=== PATIENT | male | born 1930 | race Caucasian/White ===

== ENCOUNTER 2018-02-09 00:03 | Inpatient (IN) | payer MEDICARE ==
[2018-02-09 01:33] VITALS: BP 136/77
[2018-02-09] MEDS ORDERED: Magnesium Hydroxide (MOM) 30 mL UDC PO PRN (01:35)
[2018-02-09] MEDS ORDERED: Maalox 30 mL Cup PO PRN (01:35)
[2018-02-09 08:11] LABS: CHOLESTEROL 128 mg/dL (<200); HDL -HIGH DENSITY LIPOPROTEIN 58 mg/dL (23-92); TRIGLYCERIDES 51 mg/dL (<150)
--- NOTE | 2018-02-09 12:09 | History & Physical ---
ADMIT DATE: 02/09/2018 INTERNAL MEDICINE CONSULTATION HISTORY OF PRESENT ILLNESS: This is an 87-year-old gentleman, who was brought in from [facility] secondary to grave disability and danger to self. The patient was apparently living in dilapidated trailer with no working toilet and he was also found underneath a neighbor's vehicle. He denies any of the above-mentioned data except to say that his toilet was temporarily out of order. 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 He has a history of essential hypertension, but denies any other medical history. Overall, he is a poor historian. PAST MEDICAL HISTORY: As noted above. PAST SURGERIES: Denies. FAMILY HISTORY: Noncontributory to this admission. SOCIAL HISTORY: Ex-smoker and ex-drinker, he quit about 6 years ago, cannot quantify how much he smoked or drank at that time, currently lives at home with his . ALLERGIES: NKDA. OUTPATIENT MEDICATIONS: Seroquel 25 at bedtime, Tylenol 650 q. 6 hours p.r.n. for pain, amlodipine 5 q. day, Lovenox 30 mg subQ q. daily, lorazepam 5 b.i.d. and metoprolol 25 b.i.d. REVIEW OF SYSTEMS: Good review of systems was unable to be done given the patient's being a poor historian, but he denies any recent ailments, any fever or chills. CARDIAC: No chest pain, palpitations. PULMONARY: No cough or phlegm production. GASTROINTESTINAL: No bowel habit changes including no abdominal pain, nausea, vomiting, diarrhea. GENITOURINARY: No bladder habit changes including no dysuria or hematuria. NEUROLOGIC: He denies any syncopal episodes. Reports being legally blind. MUSCULOSKELETAL: He states that his legs at times give out and sometimes that is the reason for his falls, although he blames it mostly on him being blind. PHYSICAL EXAMINATION: VITAL SIGNS: Temperature 97.9, pulse 76, respirations 18, BP 126/72, satting 98% on room air. GENERAL: Well-developed, thin, elderly male, somewhat hard of hearing, but not in acute distress. HEAD AND NECK: Normocephalic, atraumatic. Pupils are reactive to light. Extraocular movements are intact. Oropharynx is moist and clear. CARDIAC: Regular rate and rhythm with distant sounds. LUNGS: Diminished at the bases, but clear to auscultation. ABDOMEN: Soft, supple, nontender, nondistended, normoactive bowel sounds. EXTREMITIES: Lower extremity, there is no edema. NEUROLOGIC: Grossly intact, nonfocal. Cranial nerves 2-12 are within normal limits. LABORATORY DATA: His labs from [facility] were reviewed. ASSESSMENT: 1. Grave disability. 2. Danger to self. 3. Essential hypertension. 4. Legally blind. 5. Ataxia with frequent falling. PLAN: The patient has been admitted to [facility] further management and care. The patient will be kept on his current medications as scheduled including Lovenox given his inability of frequent ambulation. Again, he will be kept on his antihypertensives as scheduled. PT evaluation has been ordered. JOB# [id number] ERICA
--- NOTE | 2018-02-09 15:13 | Psychiatric Evaluation ---
DATE OF SERVICE: 02/09/2018 JUSTIFICATION FOR HOSPITALIZATION: The patient was living in a dilapidated trailer, bowel movements in a bucket, sleeping underneath a neighbor's vehicle, concerns for grave disability. CHIEF COMPLAINT: "I don't know why I am here. They pulled me out of my trailer." HISTORY OF PRESENT ILLNESS: An 87-year-old male who was apparently living in a trailer. The toilet was not working. He was defecating in a bucket. He was sleeping underneath a neighbor's vehicle, acting strange. He was confused. He knows the year. He knows the month. He is not quite sure about the day of the week. He does not know where he is. He does not know why he is here. The patient is very upset, not a good historian. The patient states he wants to go back to his trailer. He states that he can live on his own, sometimes refusing care. PAST PSYCHIATRIC HISTORY: States he has not been in a psychiatric hospital before. FAMILY HISTORY: Noncontributory. SOCIAL HISTORY: He states that he was living in [place]. No drugs. Not . States he has no kids. The patient states he was born in [place]. MEDICATIONS: Noted. MENTAL STATUS EXAMINATION: Stated age. Fair eye contact. Speech loud, poorly oriented. Mood: "Bad." Affect flat. Thought processes were tangential. No overt SI or HI. No overt psychotic symptoms. Insight and judgment diminished. PROVISIONAL DIAGNOSES: Concerns for dementia, mood, unspecified. MEDICAL: Please see full H and P. ESTIMATED LENGTH OF STAY: 5-7 days. ASSESSMENT: The patient is requiring hospitalization, concerns for safety, concerns for his ability to care for his basic needs, disoriented, confused, concerns for cognitive decline, neurocognitive impairment. PLAN: We will test further and try to increase collateral. CONDITIONS FOR DISCHARGE: Improved mood, improved affect, cessation of any agitated or combative symptoms. JOB# [id number]
[2018-02-10] MEDS: Enoxaparin 30 mg/0.3 mL 0.3mL Syr SUBQ SCH ×2 (09:28→10:51)
--- NOTE | 2018-02-10 10:39 | Progress Notes ---
DATE: 02/10/2018 SUBJECTIVE: The patient is currently in the hospital, confused, believes he is at home. He knows the year is 2017. He knows it is January. He is not sure about the day or the week. He states that he is here for "an evaluation." He states that he was brought here because he was under his truck when I asked him why he was under his truck. He states I was lying under the truck to stay warm because apparently he believes he was going to have an eye operation. The patient requiring a higher level of care, ADLs, staff has to walk with him. It is unclear how he actually survived so long on his own being legally blind, very difficult gait, difficulty with walking and somewhat disoriented, fairly calm on exam, but irritable. ASSESSMENT: The patient requiring a lot of help with activity of daily living, blind, confused, disoriented. PLAN: We will continue to monitor, titrate and adjust medications. The patient will likely need help with placement and is likely unable to live on his own. [facility]# [id number]
[2018-02-10] MEDS: Multivitamin Tab PO SCH (10:50)
--- NOTE | 2018-02-11 07:14 | Progress Notes ---
DATE: 02/11/2018 SUBJECTIVE: An 87-year-old male who is apparently living in a trailer and was hiding under a neighbor's vehicle, stating that he wanted to warm up before surgery, which does not make any sense. Generally, oriented to name, place, year and month, but he has no idea what the day is and does not know why he is in the hospital, stating that he is here for "an evaluation." The patient has very poor vision, requiring a higher level of care, confused, anxious, easily agitated, sometimes making nonsensical statements, not the best historian. ASSESSMENT: The patient remains symptomatic, ongoing concerns about his ability to care for himself. The patient is legally blind, needs constant staff supervision. PLAN: We will continue to monitor, titrate and adjust medications. We are also trying to increase collateral. JOB# [id number]
[2018-02-11] MEDS: Enoxaparin 30 mg/0.3 mL 0.3mL Syr SUBQ SCH (08:45)
[2018-02-11] MEDS: Multivitamin Tab PO SCH (08:46)
[2018-02-12] MEDS: Enoxaparin 30 mg/0.3 mL 0.3mL Syr SUBQ SCH (09:09)
[2018-02-12] MEDS: Multivitamin Tab PO SCH (09:09)
--- NOTE | 2018-02-13 06:33 | Progress Notes ---
DATE: 02/12/2018 SUBJECTIVE: The patient is legally blind, has no idea where he is or why he is here. He believes he is in a brick shed and he believes he is here because he is "turning drums." Rambling, nonsensical, stating he was under the car to warm up before surgery. Requiring a high level of prompting and redirection. Nonsensical statements, disorientation, concerns about his ability to care for himself. Still remains delusional, convinced he is in a brick shed, has no idea why he is in the hospital. Mostly keeps to himself. ASSESSMENT: The patient remains symptomatic, withdrawn, keeping to himself, confused, concerns about grave disability. PLAN: We will continue to monitor, titrate and adjust medications. JOB# [id number]
[2018-02-13] MEDS: Enoxaparin 30 mg/0.3 mL 0.3mL Syr SUBQ SCH (08:57)
[2018-02-13] MEDS: Multivitamin Tab PO SCH (08:57)
--- NOTE | 2018-02-13 10:06 | General Progress Note ---
Subjective - Review of Systems Service Date: 02/13/18 Subjective: Patient is confused Objective - Results Recent Labs: Laboratory Last Values Triglycerides 51 mg/dL (<150) 02/09/18 07:15 Cholesterol 128 mg/dL (<200) 02/09/18 07:15 LDL Cholesterol Direct 59 mg/dL (75-193) L 02/09/18 07:15 HDL Cholesterol 58 mg/dL (23-92) 02/09/18 07:15 - Physical Exam Vitals and I&O: Vital Signs Temp 97.9 F 02/13/18 04:51 Pulse 73 02/13/18 08:56 Resp 20 02/13/18 04:51 BP 147/89 02/13/18 08:56 Pulse Ox 99 02/13/18 04:51 Intake & Output 02/12/18 02/13/18 02/13/18 18:59 06:59 18:59 Intake Total 480 Balance 480 Intake: Oral 480 Other: # Voids 2 Active Medications: Current Medications Acetaminophen (Tylenol) 650 mg PO Q6H PRN PRN Reason: Pain (Mild) Stop: 04/10/18 01:57 Last Admin: 02/09/18 02:11 Dose: 650 mg Al Hydrox/Mg Hydrox/Simethicone (Maalox) 30 ml PO Q4HR PRN PRN Reason: GI DISTRESS Stop: 04/10/18 01:34 Amlodipine Besylate (Norvasc) 10 mg PO DAILY [facility] Stop: 04/10/18 10:29 Last Admin: 02/13/18 08:56 Dose: 10 mg Enoxaparin Sodium (Lovenox) 30 mg SUBQ DAILY [facility] Stop: 04/10/18 10:29 Last Admin: 02/13/18 08:57 Dose: 30 mg Lorazepam (Ativan) 0.5 mg PO BID PRN; Protocol PRN Reason: Agitation Stop: 04/10/18 01:49 Magnesium Hydroxide (Milk Of Magnesia) 30 ml PO HS PRN PRN Reason: Constipation Metoprolol Tartrate (Lopressor) 25 mg PO BID [facility] Stop: 04/10/18 10:29 Last Admin: 02/13/18 08:56 Dose: 25 mg Multivitamins/Vitamin C (Theragran) 1 tab PO DAILY [facility] Stop: 04/10/18 08:59 Last Admin: 02/13/18 08:57 Dose: 1 tab Zolpidem Tartrate (Ambien) 5 mg PO HS PRN PRN Reason: Insomnia Stop: 04/10/18 01:34 General: Alert, Other (Confused) HEENT: Atraumatic Neck: Supple Cardiovascular: Regular rate Abdomen: Bowel sounds, Soft Extremities: Other (No edema) Neurological: Other (Ataxia) Skin: Other (Warm and dry) Psych/Mental Status: Other (Confused) Assessment/Plan - Assessment Assessment: Patient is awake, alert, calm, in no acute distress. Dx: Grave disable, Legally blind, HTN, Ataxia. - Plan Plan: Patient is follow by Psychiatry, will continue with same management. Nutritional Asmnt/Malnutr-PDOC - Dietary Evaluation Malnutrition Findings (Please click <Entered> for more info): Nutritional Asmnt/Malnutrition Start: 02/12/18 15: 23 Text: Status: Complete Freq: Protocol: Document 02/12/18 15:23 LCHENG (Rec: 02/12/18 15:29 LCHENG [email or web address]) Nutritional Asmnt/Malnutrition Patient General Information Nutritional Screening Moderate Risk Diagnosis psychosis Pertinent Medical Hx/Surgical Hx HTN Subjective Information pt seen in bed, awake and confused, not answering RD greeting. Per EMR, PO intake 100%. Current Diet Order/ Nutrition Support cardiac Pertinent Medications theragran Pertinent Labs 02/09 LDL 59 Nutritional Hx/Data Height 1.8 m Height (Calculated Centimeters) 180.3 Current Weight (lbs) 49.442 kg Weight (Calculated Kilograms) 49.4 Weight (Calculated Grams) 44155.6 [place] Body Weight 172 Body Mass Index (BMI) 15.2 Weight Status Underweight GI Symptoms GI Symptoms None Last BM 02/11 Difficult in: None Skin Integrity/Comment: no skin problem noted per EMR Current %PO Good (75-100%) Estimated Nutritional Goals BEE in Kcals: Using Current wt Calories/Kcals/Kg 30-35 Kcals Calculated 3240-7011 Protein: Using Current wt Protein g/k.2 Protein Calculated 60 Fluid: ml 1500-1750ml (1ml/kcal) Nutritional Problem No current Nutrition Prob Problem N/A Intervention/Recommendation Comments 1. Continue withcardiac diet as ordered. 2. Monitor PO intake, wt, labs and skin integrity 3. F/U as low risk in 7 days, 02/19 Expected Outcomes/Goals Expected Outcomes/Goals 1. PO intake to meet at least 75% of nutritional needs. 2. Wt stability, skin to remain intact, labs to approach WNL.
--- NOTE | 2018-02-14 04:31 | Progress Notes ---
DATE: 02/13/2018 SUBJECTIVE: The patient was seen and evaluated. The patient's chart reviewed. Covering for ____. Today on [id number]-hz-[id number] evaluation, the patient starts with nonsensical statements, very difficult to engage in conversation. He has a lot of prompting and redirection. MENTAL STATUS EXAMINATION: Disoriented, disorganized, still needs redirection and prompting to maintain a conversation becomes very irritable with prompting. ASSESSMENT AND PLAN: The patient continues to remain delusional, convinced that he was ____ very disorganized. We will continue with primary psychiatrist's treatment plans and goals, which include Norvasc, Lovenox, Ativan, metoprolol. We will obtain more collateral baseline information. JOB# [id number]
[2018-02-14] MEDS: Multivitamin Tab PO SCH (08:37)
[2018-02-14] MEDS: Enoxaparin 30 mg/0.3 mL 0.3mL Syr SUBQ SCH (08:38)
--- NOTE | 2018-02-14 10:20 | General Progress Note ---
Subjective - Review of Systems Service Date: 02/14/18 Subjective: Patient is confused, calm in no acute distress. Objective - Results Recent Labs: Laboratory Last Values Triglycerides 51 mg/dL (<150) 02/09/18 07:15 Cholesterol 128 mg/dL (<200) 02/09/18 07:15 LDL Cholesterol Direct 59 mg/dL (75-193) L 02/09/18 07:15 HDL Cholesterol 58 mg/dL (23-92) 02/09/18 07:15 - Physical Exam Vitals and I&O: Vital Signs Temp 97.2 F 02/13/18 20:00 Pulse 64 02/14/18 08:38 Resp 18 02/14/18 05:27 BP 114/64 02/14/18 08:38 Pulse Ox 97 02/14/18 05:27 Intake & Output 02/13/18 02/14/18 02/14/18 18:59 06:59 18:59 Other: # Bowel Movements 1 Active Medications: Current Medications Acetaminophen (Tylenol) 650 mg PO Q6H PRN PRN Reason: Pain (Mild) Stop: 04/10/18 01:57 Last Admin: 02/09/18 02:11 Dose: 650 mg Al Hydrox/Mg Hydrox/Simethicone (Maalox) 30 ml PO Q4HR PRN PRN Reason: GI DISTRESS Stop: 04/10/18 01:34 Amlodipine Besylate (Norvasc) 10 mg PO DAILY [facility] Stop: 04/10/18 10:29 Last Admin: 02/14/18 08:38 Dose: Not Given Enoxaparin Sodium (Lovenox) 30 mg SUBQ DAILY [facility] Stop: 04/10/18 10:29 Last Admin: 02/14/18 08:38 Dose: 30 mg Lorazepam (Ativan) 0.5 mg PO BID PRN; Protocol PRN Reason: Agitation Stop: 04/10/18 01:49 Magnesium Hydroxide (Milk Of Magnesia) 30 ml PO HS PRN PRN Reason: Constipation Metoprolol Tartrate (Lopressor) 25 mg PO BID [facility] Stop: 04/10/18 10:29 Last Admin: 02/14/18 08:38 Dose: Not Given Multivitamins/Vitamin C (Theragran) 1 tab PO DAILY [facility] Stop: 04/10/18 08:59 Last Admin: 02/14/18 08:37 Dose: 1 tab Zolpidem Tartrate (Ambien) 5 mg PO HS PRN PRN Reason: Insomnia Stop: 04/10/18 01:34 General: Alert, Other (Confused) HEENT: Atraumatic Neck: Supple Cardiovascular: Regular rate Abdomen: Bowel sounds, Soft Extremities: Other (No edema) Neurological: Other (Ataxia) Skin: Other (Warm and dry) Psych/Mental Status: Other (Confused) Assessment/Plan - Assessment Assessment: Patient is awake, alert, calm, in no acute distress. Dx: Grave disable, Legally blind, HTN, Ataxia. - Plan Plan: Patient is follow by Psychiatry, will continue with same management. Nutritional Asmnt/Malnutr-PDOC - Dietary Evaluation Malnutrition Findings (Please click <Entered> for more info): Nutritional Asmnt/Malnutrition Start: 02/12/18 15: 23 Text: Status: Complete Freq: Protocol: Document 02/12/18 15:23 LCHENG (Rec: 02/12/18 15:29 LCHENG [id number]) Nutritional Asmnt/Malnutrition Patient General Information Nutritional Screening Moderate Risk Diagnosis psychosis Pertinent Medical Hx/Surgical Hx HTN Subjective Information pt seen in bed, awake and confused, not answering RD greeting. Per EMR, PO intake 100%. Current Diet Order/ Nutrition Support cardiac Pertinent Medications theragran Pertinent Labs 02/09 LDL 59 Nutritional Hx/Data Height 1.8 m Height (Calculated Centimeters) 180.3 Current Weight (lbs) 49.442 kg Weight (Calculated Kilograms) 49.4 Weight (Calculated Grams) 18226.6 [place] Body Weight 172 Body Mass Index (BMI) 15.2 Weight Status Underweight GI Symptoms GI Symptoms None Last BM 02/11 Difficult in: None Skin Integrity/Comment: no skin problem noted per EMR Current %PO Good (75-100%) Estimated Nutritional Goals BEE in Kcals: Using Current wt Calories/Kcals/Kg 30-35 Kcals Calculated 1535-2041 Protein: Using Current wt Protein g/k.2 Protein Calculated 60 Fluid: ml 1500-1750ml (1ml/kcal) Nutritional Problem No current Nutrition Prob Problem N/A Intervention/Recommendation Comments 1. Continue withcardiac diet as ordered. 2. Monitor PO intake, wt, labs and skin integrity 3. F/U as low risk in 7 days, 02/19 Expected Outcomes/Goals Expected Outcomes/Goals 1. PO intake to meet at least 75% of nutritional needs. 2. Wt stability, skin to remain intact, labs to approach WNL.
--- NOTE | 2018-02-15 02:20 | Progress Notes ---
DATE: SUBJECTIVE: The patient was seen and evaluated. The patient's chart reviewed. Covering for . Today on bdog-kc-hbtu evaluation, the patient presents in his bed disengaged and minimally interactive. MENTAL STATUS EXAMINATION: Disorganized, disoriented, lot of redirection needed to maintain a conversation. ASSESSMENT AND PLAN: The patient is still disorganized, delusional state, unable to formulate safe plan outside a structured environment. We will continue with the current medication regimen to continue to target the patient's symptoms. JOB# [id number]
[2018-02-15] MEDS: Enoxaparin 30 mg/0.3 mL 0.3mL Syr SUBQ SCH (09:14)
[2018-02-15] MEDS: Multivitamin Tab PO SCH ×2 (09:16→11:45)
--- NOTE | 2018-02-15 20:26 | Progress Notes ---
DATE: 02/15/2018 SUBJECTIVE: The patient minimal interactive. Does not want to talk to me today. Mostly withdrawn in his room, isolative, confused as to why he is here. He was hiding under a car, claiming that he was preparing for surgery, not making any sense and legally blind. The patient more sensical knows that he is in the hospital, knows the year, the month, but ongoing concerns about his ability to care for himself, function at a lower level of care given the events that brought him into the hospital initially. ASSESSMENT: The patient is withdrawn, mostly isolative, thoughts of disorientation especially when it comes to why he is in the hospital. We will continue to monitor ongoing safety concerns, certainly concerns about his ability to care for his basic needs. Per social insurance analyst notes, there is an open APS report. JOB# [id number]
[2018-02-16] MEDS: Multivitamin Tab PO SCH (09:09)
[2018-02-16] MEDS: Enoxaparin 30 mg/0.3 mL 0.3mL Syr SUBQ SCH (09:10)
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
[2018-02-17] MEDS: Multivitamin Tab PO SCH (09:37)
[2018-02-17] MEDS: Enoxaparin 30 mg/0.3 mL 0.3mL Syr SUBQ SCH (09:39)
--- NOTE | 2018-02-17 22:07 | Progress Notes ---
DATE: 02/17/2018 SUBJECTIVE: The patient is calm, cooperative, gravely disabled, cannot take care of himself, very confused, disoriented, isolative, very forgetful on exam, 87 years old, calm at this time, no agitation, no escalation of behaviors, requiring a lot of prompting, redirection, agreeable to placement, no behavioral outbursts. ASSESSMENT: The patient is confused, disoriented, does not really know why he is here or the year or the month or the day of the week. He has been cooperative, needing a higher level of redirection and staff support. PLAN: We will continue to monitor. We are actively trying to help him with a safe disposition. JOB# [id number]
[2018-02-18] MEDS: Enoxaparin 30 mg/0.3 mL 0.3mL Syr SUBQ SCH (10:05)
[2018-02-18] MEDS: Multivitamin Tab PO SCH (10:07)
--- NOTE | 2018-02-18 14:53 | Progress Notes ---
DATE: 02/18/2018 SUBJECTIVE: The patient remains confused and in constant redirection, prompting gravely disabled, had been hiding under a car prior to coming to the hospital, unlivable arrangements, living in a trailer, defecating in a bucket in the living room. The patient unable to express any plans for self-care, but is amenable to placement. MEDICATIONS: Reviewed. Calm at this time. ASSESSMENT: The patient remains symptomatic, concerns about his mentation, confusion noted, forgetfulness. PLAN: We will initiate Namenda dosing. Medications were reviewed. We are trying to help him with placement at this time as well. JOB# [id number]
[2018-02-19] MEDS: Enoxaparin 30 mg/0.3 mL 0.3mL Syr SUBQ SCH (10:14)
[2018-02-19] MEDS: Multivitamin Tab PO SCH (10:15)
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
--- NOTE | 2018-02-20 09:43 | Progress Notes ---
DATE: 02/20/2018 The patient is in the hospital, remains confused, disoriented, unable to care for his basic needs, considered gravely disabled, forgetful, impulsive, sometimes yells, who has been fairly calm. He is blind, needs lot of redirection, prompting. ASSESSMENT: The patient considered gravely disabled. We are trying to confirm a safe discharge plan. PLAN: We will continue to monitor, coordinate care with social work. Monitor for any behavioral disturbances or changes. JOB# [id number]
[2018-02-20] MEDS: Multivitamin Tab PO SCH (09:57)
[2018-02-20] MEDS: Enoxaparin 30 mg/0.3 mL 0.3mL Syr SUBQ SCH (09:57)
--- NOTE | 2018-02-21 09:17 | Progress Notes ---
DATE: SUBJECTIVE: The patient is currently in the hospital, slept for about 7 hours, disorganized, agitated, very confused, asking me what language I am speaking, were both speak Azerbaijani, blind, does not know what is going on. I tried to orient him, but he is pretty forgetful, confused, history of Memory decline. No agitation, no escalation of behaviors, taking his medications. ASSESSMENT: The patient isolative, withdrawn, gravely disabled, unable to care for his basic needs. He is blind, impoverished, fragile, forgetful. PLAN: We will continue to monitor. Continue Namenda. We are trying to secure a safe disposition. JOB# [id number]
[2018-02-21] MEDS: Multivitamin Tab PO SCH (09:49)
[2018-02-21] MEDS: Enoxaparin 30 mg/0.3 mL 0.3mL Syr SUBQ SCH (09:50)
[2018-02-22] MEDS: Multivitamin Tab PO SCH (08:58)
[2018-02-22] MEDS: Enoxaparin 30 mg/0.3 mL 0.3mL Syr SUBQ SCH (08:59)
--- NOTE | 2018-02-23 04:14 | Progress Notes ---
DATE: 02/22/2018 SUBJECTIVE: The patient needs to be placed. He is gravely disabled. Multiple efforts have been made to get him placed. Remains mostly withdrawn, needing assistance. He is by definition gravely disabled. He is blind. He is confused. He needs constant redirection and prompting, cannot take care of his basic food, clothing, and half-way. He does eat and clean himself independently, but he is blind, so he needs someone to bring him the food. Still remains irritable. Telling people to go away. ASSESSMENT: The patient remains irritable, upset, depressed, mostly withdrawn, confused. PLAN: We will continue to monitor. We will need to help him with the safe dispo. JOB# [id number]
[2018-02-23] MEDS: Multivitamin Tab PO SCH (09:35)
[2018-02-23] MEDS: Enoxaparin 30 mg/0.3 mL 0.3mL Syr SUBQ SCH (09:37)
--- NOTE | 2018-02-23 21:28 | Progress Notes ---
DATE: 02/23/2018 SUBJECTIVE: The patient remains impoverished mostly in his room, in his bed, not really amenable to interview, easily aroused; however, awake, does not know where he is, blind, gravely disabled. The patient withdrawn, depressed. He does not really know where he is or what is going on. No agitation at this time. We are trying to help him. ASSESSMENT: The patient remains gravely disabled, unable to care for basic needs and blind and highly disheveled and impoverished and confused. PLAN: We will continue to monitor. We will titrate and adjust medications. We are actively seeking a place for the patient to be and a safe discharge plan. JOB# [id number]
[2018-02-24] MEDS: Multivitamin Tab PO SCH (09:28)
[2018-02-24] MEDS: Enoxaparin 30 mg/0.3 mL 0.3mL Syr SUBQ SCH (09:29)
--- NOTE | 2018-02-24 20:38 | Progress Notes ---
DATE: 02/24/2018 SUBJECTIVE: The patient is confused, disoriented, really does not know where he is, unable to care for his basic needs, mostly in bed, oriented to self only, blind, irritable, paranoid. Does not know what is going on, talking about his old car, unable to care for his basic needs, unable to really participate in the conversation revolving around basic food, clothing and prison. Sleeping well, eating with some prompting, needing a higher level of nursing care, cannot fend for himself. ASSESSMENT: The patient is irritable, sometimes agitated, but not aggressive. Currently, gravely disabled. PLAN: We will continue to monitor. We are working hard on placements. JOB# [id number]
[2018-02-25] MEDS: Multivitamin Tab PO SCH (10:03)
[2018-02-25] MEDS: Enoxaparin 30 mg/0.3 mL 0.3mL Syr SUBQ SCH (10:05)
--- NOTE | 2018-02-25 14:26 | Progress Notes ---
DATE: 02/25/2018 Case was discussed with staff of the patient and record. This is covering for ____. This 87-year-old male who was admitted on 02/09/2018. The patient was confused, unable to tell why he is here. He was living in a trailer and the toilet was not working. He was defecating in a bucket. He was sleeping underneath a neighbor's vehicle, acting bizarre, confused. He is not sure of the exact date. He does not know why he was in the hospital, he was very upset. He continues to be confused, unpredictable, impulsive, needing redirection. He has been compliant with the medication with no side effects, no sedation, no nausea. He is on Namenda 5 mg daily, which will be increasing to twice a day and we will continue with the patient in group therapy, milieu therapy, and adjust medication as needed. JOB# [id number]
[2018-02-26] MEDS: Multivitamin Tab PO SCH (09:33)
[2018-02-26] MEDS: Enoxaparin 30 mg/0.3 mL 0.3mL Syr SUBQ SCH (16:57)
--- NOTE | 2018-02-26 21:36 | Progress Notes ---
DATE: 02/26/2018 Case was discussed with staff of the patient, reviewed records. The patient continues to be unpredictable, impulsive, confused, continues to be unable to make safe plan for self-care, unable to carry on a conversation. He is sleeping better, eating better, compliant with the medication with no side effects, no sedation, no nausea. I increased his Namenda dose yesterday and we will continue the patient in group therapy, milieu therapy, and adjust medications as needed. JOB# [id number]
== END 2018-02-26 23:50 | DRG 885 ==
LOC: GERO2 00:03
PROVIDERS: ADMIT Psychiatry & Neurology Psychiatry; ATTEND Psychiatry & Neurology Psychiatry
DX: F39 Unspecified mood [affective] disorder (principal); I10 Essential (primary) hypertension; F03.90 Unspecified dementia, unspecified severity, without behavioral disturbance, psychotic disturbance, mood disturbance, and anxiety; R27.0 Ataxia, unspecified; H54.8 Legal blindness, as defined in USA; Z91.81 History of falling; Z87.891 Personal history of nicotine dependence
CPT/HCPCS: 36415-UA; 80061-TC; 83036-90; J1650; Z7610